=== PATIENT | female | born 1985 | race Caucasian/White ===

== ENCOUNTER 2018-11-09 19:51 | Emergency (ER) | payer OTHER ==
[~2018-11-09] VITALS: Ht 170.2 cm; Wt 81.6 kg
[2018-11-10 00:56] VITALS: BP 158/108
[2018-11-10] MEDS ORDERED: BACLOFEN 10 MG TAB PO ONE (01:00)
[2018-11-10] MEDS ORDERED: DexAMETHasone SOD PHOS 10MG/1ML VIAL INJ IM ONE (01:00)
== END 2018-11-10 01:42 | disposition home or self-care (01) ==
LOC: ER 19:51 → EDBD 19:51 → ER 11-10 01:42
DX: M62.838 Other muscle spasm (principal); V43.52XA Car driver injured in collision with other type car in traffic accident, initial encounter; Y93.89 Activity, other specified; Y99.8 Other external cause status; Y92.410 Unspecified street and highway as the place of occurrence of the external cause
CPT/HCPCS: 70450; 73030; 96372; 99284; J1100